=== PATIENT | male | born 1995 | race Caucasian/White ===

== ENCOUNTER 2023-10-09 17:03 | Emergency (ER) | payer SELFPAY ==
[~2023-10-09] VITALS: Ht 157.5 cm; Wt 72.6 kg
[2023-10-09 17:51] VITALS: BP 132/80; PULSE 72; RESP 18; TEMP 98.4; O2SAT 99
[2023-10-09] MEDS ORDERED: ZOFRAN ODT SL STA (17:56)
[2023-10-09] MEDS ORDERED: LIDOCAINE HCL VISCOUS MM STA (17:56)
[2023-10-09] MEDS ORDERED: MYLANTA PO STA (17:56)
[2023-10-09] MEDS ORDERED: ZOFRAN ODT ONE (18:01)
[2023-10-09] MEDS ORDERED: LIDOCAINE HCL VISCOUS ONE (18:01)
[2023-10-09] MEDS ORDERED: MYLANTA ONE (18:01)
== END 2023-10-09 18:55 | disposition home or self-care (01) ==
LOC: ER 18:38
DX: R10.13 Epigastric pain (principal); F12.90 Cannabis use, unspecified, uncomplicated
CPT/HCPCS: 99281; J3490